=== PATIENT | male | born 1955 | race Caucasian/White ===

== ENCOUNTER 2018-10-06 06:42 | Day surgery (SDC) | payer OTHER ==
[~2018-10-06] VITALS: Ht 175.3 cm; Wt 111.4 kg
[2018-10-06] MEDS ORDERED: PRINIVIL40 MG PO (07:03)
[2018-10-06] MEDS ORDERED: HCTZ 25MG TAB25 MG PO (07:03)
[2018-10-06] MEDS ORDERED: ZETIA 10MG TAB10 MG PO (07:03)
[2018-10-06] MEDS ORDERED: GLUCOPHAGE1000 MG PO (07:04)
[2018-10-06] MEDS ORDERED: DIMETAPP COLD PO (07:06)
[2018-10-06] MEDS ORDERED: PROAIR HFA0.09 MG/AC IH (07:07)
[2018-10-06] MEDS ORDERED: ASPIRIN 81M81 MG/TA2 PO (07:07)
[2018-10-06] MEDS ORDERED: FLONASE NASAL S16 GM NS (07:08)
[2018-10-06] MEDS ORDERED: SUDAFED30 MG PO (07:09)
[2018-10-06] MEDS ORDERED: MASON NATURAL2000 IU PO (07:10)
[2018-10-06] MEDS ORDERED: ATROVENT NASAL15 ML NS (07:11)
[2018-10-06 07:45] VITALS: BP 149/69; PULSE 100; TEMP 98.5
[2018-10-06 09:55] VITALS: BP 110/59; PULSE 96; TEMP 97.7
--- NOTE | 2018-10-06 09:55 | NUR ---
Patient arrives back from Endo alert, denies pain. Patient monitor applied, vitals stable. Oxygen level in the mid to upper 80%s on room air. 2L O2 per nasal cannula applied.
[2018-10-06 10:10] VITALS: BP 127/55; PULSE 98
--- NOTE | 2018-10-06 10:10 | NUR ---
Patient tolerates pudding and coffee without any difficulties. Patient's friend at bedside. Vitals stable.
--- NOTE | 2018-10-06 10:10 | NUR ---
Radiology into see patient at this time.
[2018-10-06 10:25] VITALS: BP 129/62; PULSE 97
--- NOTE | 2018-10-06 10:25 | NUR ---
Oxygen therapy discontinued at this time to see how patient can do on room air.
[2018-10-06 10:39] LABS: PLEURAL FLUID RBC 2000 /mm3 (0-0); PLEURAL FLUID WBC 1382 /mm3
[2018-10-06 10:40] VITALS: BP 138/61; PULSE 95
--- NOTE | 2018-10-06 10:45 | NUR ---
Patient has maintained his oxygen saturation levels between 88-90% while on room air. Patient denies shortness of breath or pain. Will notify Dr Maloney.
[2018-10-06 10:46] LABS: PLEURAL FLUID APPEARANCE CLEAR; PLEURAL FLUID COLOR YELLOW
--- NOTE | 2018-10-06 10:50 | NUR ---
Dr Maloney contacted at this time to go over Chest X-ray results and patient's oxygen saturation. Dr Maloney reports that patient's chest x-ray looks ok to send him home, and that he wants patient to go straight to his office to get setup on home O2.
[2018-10-06 10:55] LABS: GLUCOSE,PLEURAL FLUID 139 mg/dL; TOTAL PROTEIN,PLEURAL FLUID 3.6 gm/dL
--- NOTE | 2018-10-06 11:10 | NUR ---
Dismissal instructions gone over with patient. He verbalizes understanding and all questions answered. Patient thanks staff for services.
[2018-10-06 11:55] VITALS: BP 115/54; PULSE 93
== END 2018-10-06 11:15 | disposition home or self-care (01) ==
LOC: SDCO 06:42
PROVIDERS: Internal Medicine Pulmonary Disease
DX: C34.01 Malignant neoplasm of right main bronchus (principal); J90 Pleural effusion, not elsewhere classified; J98.11 Atelectasis; Z87.891 Personal history of nicotine dependence; Z80.3 Family history of malignant neoplasm of breast; Z80.0 Family history of malignant neoplasm of digestive organs; R63.4 Abnormal weight loss; R05 Cough; E11.9 Type 2 diabetes mellitus without complications; Z79.84 Long term (current) use of oral hypoglycemic drugs; Z79.899 Other long term (current) drug therapy; Z79.82 Long term (current) use of aspirin; Z83.3 Family history of diabetes mellitus; Z80.9 Family history of malignant neoplasm, unspecified
CPT/HCPCS: J2704; J7120

== ENCOUNTER 2018-11-28 09:28 | Inpatient (IN) | payer OTHER ==
[~2018-11-28] VITALS: Ht 182.9 cm; Wt 118.6 kg
[2018-11-28] VITALS (505 sets, daily range): BP systolic 84–152; BP diastolic 51–85; PULSE 115–131; TEMP 98.6–100.6; O2SAT 91–97
[~2018-11-28 09:28] MED LIST: ASPIRIN 81M81 MG/TA2 PO; ATROVENT NASAL15 ML NS; DIMETAPP COLD PO; FLONASE NASAL S16 GM NS; GLUCOPHAGE1000 MG PO; HCTZ 25MG TAB25 MG PO; MASON NATURAL2000 IU PO; PRINIVIL40 MG PO; PROAIR HFA0.09 MG/AC IH; SUDAFED30 MG PO; ZETIA 10MG TAB10 MG PO
--- NOTE | 2018-11-28 11:00 | NUR ---
Pt arrived via EMS with propofol infusing at 5mcg/kg/min with pt's eyes open with restless and aggitated arm movements. MD Courtney and MD Kelsey notified of arrival - sedation orders and parameters recieved. Pt transfered via slideboard to ICU bed without difficulty, pt connected to hospital ventilator. Green catheter inserted with assistance of NIDIA Abernathy. Existing incompatible NG tube removed and replaced with OG tube 70cm to lip placement confirmed by radiograph placed on low intermittant suction - reddish green drainage noted. Orders for restraints carried out. Pt able to follow commands, shake head "yes and no" for questions. Pt denies pain, moves all extremities with purposeful movement. 1334: Spouse Cassy called in for update, stated she and daughter will be in to see pt tomorrow. Pt updated spouse called in to check on him 1400: MD Kelsey and MD Courtney at bedside together 1404: MD Courtney notified of critical lab: Chloride 88 - no new orders Sedation increased per protocol after Levophed initiated. Pt denies wish to have television on.
[2018-11-28 11:57] LABS: ARTERIAL BLD GAS O2 SATURATION 97.5 % (92-100); ARTERIAL BLD GAS TCO2 CT 27.7; ARTERIAL BLOOD GAS BASE EXCESS 1.2 (-2-2); ARTERIAL BLOOD GAS HCO3 26.3 meq/L (22-26); ARTERIAL BLOOD GAS PCO2 43.8 mmHg (35-45); ARTERIAL BLOOD GAS PO2 109.3 mmHg (80-100)
[2018-11-28 13:50] LABS: HEMOGLOBIN 10.2 g/dl (13.5-18.0); MEAN CELL VOLUME 86 fl (80.0-100.0); MEAN CORPUSCULAR HEMOGLOBIN 29 pg (27.0-31.0); MEAN CORPUSCULAR HGB CONC 33 g/dl (33.0-37.0); MEAN PLATELET VOLUME 8.5 fl (7.4-10.4); PLATELET COUNT 200 K/mm3 (130-400); RED BLOOD COUNT 3.55 M/mm3 (4.20-5.60); REDCELL DISTRIBUTION WIDTH-CV 16.4 % (11.5-14.5)
[2018-11-28 13:51] LABS: HEMATOCRIT 30.5 % (42.0-52.0)
[2018-11-28 14:02] LABS: ALBUMIN 2.5 gm/dL (3.5-5.0); BILIRUBIN UNCONJUGATED 0.1 mg/dL (0.0-1.1); BILIRUBIN,DIRECT 0.3 mg/dL (0.0-0.4); BILIRUBIN,TOTAL 0.4 mg/dL (0.0-1.0); CREATININE, serum 0.54 (0.66-1.25); POTASSIUM 3.4 mmol/L (3.4-5.0); TOTAL PROTEIN 5.4 gm/dL (6.4-8.2)
[2018-11-28 14:03] LABS: BAND 27 % (0-10); EOSINOPHIL 2 % (0-4); LYMPHOCYTE 2 % (20.0-51.0); NEUTROPHILS 69 % (42.0-75.2); PLATELET ESTIMATE NORMAL (NORMAL)
[2018-11-28 17:05] LABS: MUCOUS Present /lpf; PH 5 (5-8); SQUAMOUS EPITHELIAL None Seen /hpf; URINE APPEARANCE Clear; URINE BACTERIA None Seen /hpf; URINE BILIRUBIN Negative (NEGATIVE); URINE BLOOD 1+ (NEGATIVE); URINE COLOR Yellow; URINE GLUCOSE Negative (NEGATIVE); URINE KETONE Trace (NEGATIVE); URINE LEUKOCYTE ESTERASE Negative (NEGATIVE); URINE NITRATE Negative (NEGATIVE); URINE PROTEIN(semi-quant) Negative (NEGATIVE); URINE UROBILINOGEN Negative (NEGATIVE); URINE WBC 0-2 /hpf
[2018-11-28 17:13] LABS: COLLECTION METHOD CLEAN CATCH
[2018-11-28] MEDS ORDERED: FOLIC ACID 11 MG/TA1 PO (17:31)
[2018-11-28] MEDS ORDERED: B-121000 MCG PO (17:32)
[2018-11-28] MEDS ORDERED: DECADRON 4MG TAB4 MG PO (17:32)
[2018-11-28] MEDS ORDERED: ZITHROMAX 250M250 MG (17:33)
--- NOTE | 2018-11-28 19:20 | NUR ---
RECEIVED REP[ORT FROM NIDIA IVAN. MEDICATIONS, TUBES, AND LINES VARIFIED. WILL CONTINUE TO MONITOR PATIENT.
--- NOTE | 2018-11-28 19:22 | NUR ---
Reported off to NIDIA Constantino at bedside. All lines, OG, gtts, and tubes assessed together.
[2018-11-28 22:44] LABS: HEMATOCRIT 29.1 % (42.0-52.0); HEMOGLOBIN 9.9 g/dl (13.5-18.0)
--- NOTE | 2018-11-28 23:24 | NUR ---
PATIENTS URINE HAS BECOME MORE CLOUDY THROUGHOUT SHIFT.
--- NOTE | 2018-11-28 23:51 | NUR ---
CALLED HECTOR RAMÍREZ TO INFORM HER OF PATIENTS HEART RATE, [id number]. INSTRUCTED ME TO CALL AND EICU. CALLED EICU REGARDING THIS INFORMATION AND NIDIA BIRMINGHAM SAID SHE WOULD NOTIFY THE PHYSICIAN.
[2018-11-29] VITALS (570 sets, daily range): BP systolic 76–178; BP diastolic 43–91; PULSE 90–121; TEMP 98.8–102; O2SAT 85–97
--- NOTE | 2018-11-29 00:38 | NUR ---
patient is sedated at this time. will follow commands when asked. resting comfortably.
--- NOTE | 2018-11-29 02:40 | NUR ---
PATIENT IS RESTING PEACEFULLY. WILL CONTINUE TO MONITOR PATIENT AT THIS TIME.
--- NOTE | 2018-11-29 03:32 | NUR ---
Gave patient a bed bath. Patient had a few questions so we communicated via whiteboard. I answered all his questions and He asked me if he could rest now. Patient denied pain at this time. Will continue to monitor patient.
--- NOTE | 2018-11-29 04:11 | NUR ---
NOTIFIED DARRELL, PHOTOGRAMMETRIC TECHNICIAN OF THE ELEVATED TEMPERATURE AND INCREASED CLOUDINESS OF PATIENTS URINE.
--- NOTE | 2018-11-29 05:06 | NUR ---
PATIENT IS ALREADY ALERT, COMMUNICATING THROUGH THE WHITEBOARD, AND RESPONDING TO COMMANDS AT THIS TIME. NO NEED TO FURTHER REDUCE THE PROPOFOL AND FENTANYL.
[2018-11-29 05:51] LABS: ARTERIAL BLD GAS O2 SATURATION 98.2 % (92-100); ARTERIAL BLD GAS TCO2 CT 24.9; ARTERIAL BLOOD GAS BASE EXCESS -0.2 (-2-2); ARTERIAL BLOOD GAS HCO3 23.8 meq/L (22-26); ARTERIAL BLOOD GAS PCO2 36.6 mmHg (35-45); ARTERIAL BLOOD GAS pH 7.43 (7.35-7.45)
[2018-11-29 05:53] LABS: MEAN CELL VOLUME 87 fl (80.0-100.0); MEAN CORPUSCULAR HGB CONC 32 g/dl (33.0-37.0); MEAN PLATELET VOLUME 8.7 fl (7.4-10.4); PLATELET COUNT 186 K/mm3 (130-400); RED BLOOD COUNT 3.33 M/mm3 (4.20-5.60); REDCELL DISTRIBUTION WIDTH-CV 16.8 % (11.5-14.5)
[2018-11-29 05:57] LABS: HEMATOCRIT 28.9 % (42.0-52.0); HEMOGLOBIN 9.3 g/dl (13.5-18.0); MEAN CORPUSCULAR HEMOGLOBIN 28 pg (27.0-31.0)
--- NOTE | 2018-11-29 06:01 | NUR ---
CALLED AND REPORTED CRITICAL LAB VALUE TO [facility].
[2018-11-29 06:03] LABS: ALBUMIN 2.4 gm/dL (3.5-5.0); BILIRUBIN,TOTAL 0.7 mg/dL (0.0-1.0); CALCIUM 7.5 mg/dL (8.4-10.2); CREATININE, serum 0.55 (0.66-1.25); MAGNESIUM 1.8 mg/dL (1.6-2.3); PHOSPHOROUS 2.7 mg/dL (2.5-4.5)
--- NOTE | 2018-11-29 07:32 | NUR ---
GAVE REPORT TO NIDIA IVAN.
--- NOTE | 2018-11-29 08:00 | NUR ---
ATTEMPTED TO WEAN FIO2 BY 10% TAKING IT DOWN TO 60% FI02 PER AM ABG'S PAO2 RESULTS. SPO2 NOT TOLERATING CHANGE WILL INCREASE BY 5% AND IF NOT TOLERATED WILL RETURN TO 70% FI02. DR. TOBY STOKES.
[2018-11-29 08:06] LABS: ANISOCYTOSIS 1+; BAND 14 % (0-10); EOSINOPHIL 8 % (0-4); LYMPHOCYTE 3 % (20.0-51.0); NEUTROPHILS 75 % (42.0-75.2); PLATELET ESTIMATE NORMAL (NORMAL)
[2018-11-29 09:58] LABS: COLLECTION METHOD CATHETER
[2018-11-29 10:17] LABS: AMORPHOUS CRYSTAL Present /uL; MUCOUS Present /lpf; PH 5 (5-8); SQUAMOUS EPITHELIAL 0-2 /hpf; URINE APPEARANCE Turbid; URINE BACTERIA None Seen /hpf; URINE BILIRUBIN Negative (NEGATIVE); URINE BLOOD 2+ (NEGATIVE); URINE COLOR Red; URINE GLUCOSE Negative (NEGATIVE); URINE KETONE 1+ (NEGATIVE); URINE LEUKOCYTE ESTERASE Negative (NEGATIVE); URINE NITRATE Negative (NEGATIVE); URINE PROTEIN(semi-quant) 1+ (NEGATIVE); URINE RBC >50 /hpf; URINE UROBILINOGEN Negative (NEGATIVE)
--- NOTE | 2018-11-29 11:33 | NUR ---
MD Courtney notified pts spouse Cassy and her 2 daughters here visiting and are requesting meeting with doctor.
--- NOTE | 2018-11-29 12:13 | NUR ---
MD Courtney at bedside talking with family about plan of care
--- NOTE | 2018-11-29 13:10 | NUR ---
Patient lives at home with his (Viviana) in [place], [place] and plans to return home upon discharge as his recovery will allow. Patient is undergoing chemotherapy and radiation for lung cancer and he is retired from the [employer] . Patient's primary care physician is Dr. Taylor Sepulveda, his pharmacy and medical care are monitored by [facility], and he does not have advance directives on file at this time. No further needs at this time and social economist will follow as needed. Patient's (Milena) contact information is [phone].
[2018-11-29 13:41] LABS: HEMATOCRIT 27.8 % (42.0-52.0); HEMOGLOBIN 9.1 g/dl (13.5-18.0)
--- NOTE | 2018-11-29 16:22 | NUR ---
Pt transported for CT scan accompanied by Student RN and Patience,RT using transport ventilator. Transport to and fro completed without difficulty or line/tube issues or compromise, vitals remained stable, see IV drip titrate notes, MD Courtney notified of completed study. 1622 departed ICU - 1650 arrival
--- NOTE | 2018-11-29 16:22 | NUR ---
PT TRANSPORTED TO CT SCAN AT THIS TIME. PT PLACED ON TRANSPORT VENTILATOR. NO INCIDENTS. PT TOLERATED TRANSPORT WELL. PT PLACED ON PREVIOUSLY DOCUMENTED SETTINGS FOR TRANSPORT. POST TRANSPORT PT PLACED BACK ON DRAGER VENT WITH PREVIOUS SETTINGS. NO CHANGES AT THIS TIME.
--- NOTE | 2018-11-29 17:29 | NUR ---
Pt RASS of -1 at current sedation infusion rates and able to follow all commands including equal strong bilateral hand grasps and bilateral lower extremity movements
--- NOTE | 2018-11-29 19:10 | NUR ---
Initiated at previous dosage patient was running at, as the starting dosage resulted in increased BP. Will continue to monitor.
--- NOTE | 2018-11-29 20:10 | NUR ---
Patient assessment completed and charted at this time, please see documentation for details. Patient on ventilator, following commands, easily arroused. Will continue to monitor patient at this time.
[2018-11-30] VITALS (368 sets, daily range): BP systolic 76–134; BP diastolic 56–76; PULSE 98–113; TEMP 98.7–100.7; O2SAT 88–95
--- NOTE | 2018-11-30 05:00 | NUR ---
Patient not a candidate for smart care, easily arousable, following commands, no sedation vacation at this time.
[2018-11-30 05:02] LABS: MEAN CELL VOLUME 87 fl (80.0-100.0); MEAN CORPUSCULAR HGB CONC 33 g/dl (33.0-37.0); MEAN PLATELET VOLUME 8.7 fl (7.4-10.4); PLATELET COUNT 136 K/mm3 (130-400); RED BLOOD COUNT 3.27 M/mm3 (4.20-5.60); REDCELL DISTRIBUTION WIDTH-CV 17.3 % (11.5-14.5)
[2018-11-30 05:04] LABS: HEMATOCRIT 28.4 % (42.0-52.0); HEMOGLOBIN 9.3 g/dl (13.5-18.0); MEAN CORPUSCULAR HEMOGLOBIN 28 pg (27.0-31.0)
[2018-11-30 05:17] LABS: ALBUMIN 2.5 gm/dL (3.5-5.0); BILIRUBIN,TOTAL 0.6 mg/dL (0.0-1.0); CREATININE, serum 0.92 (0.66-1.25); PHOSPHOROUS 3.6 mg/dL (2.5-4.5); POTASSIUM 3.8 mmol/L (3.4-5.0); TOTAL PROTEIN 5.4 gm/dL (6.4-8.2)
[2018-11-30 05:30] LABS: ANISOCYTOSIS 1+; BAND 6 % (0-10); EOSINOPHIL 16 % (0-4); HYPOCHROMIA 1+; NEUTROPHILS 76 % (42.0-75.2); PLATELET ESTIMATE DECREASED (NORMAL)
[2018-11-30 05:31] LABS: TEAR DROP CELLS 1+
[2018-11-30 05:58] LABS: ARTERIAL BLD GAS O2 SATURATION 93.2 % (92-100); ARTERIAL BLD GAS TCO2 CT 23.8; ARTERIAL BLOOD GAS BASE EXCESS -1.5 (-2-2); ARTERIAL BLOOD GAS HCO3 22.7 meq/L (22-26); ARTERIAL BLOOD GAS PCO2 36.2 mmHg (35-45); ARTERIAL BLOOD GAS pH 7.42 (7.35-7.45)
--- NOTE | 2018-11-30 06:53 | NUR ---
NO CPAP TRIAL
--- NOTE | 2018-11-30 07:00 | NUR ---
Report recieved from NIDIA Vergara.
--- NOTE | 2018-11-30 07:30 | NUR ---
Assessment complete, patient remains intubated, awakens easily to name, follows commands, AM care complete, bilateral wrist restraints in place, call light within reach.
--- NOTE | 2018-11-30 11:47 | NUR ---
irrigation service technician in room for ECHO.
--- NOTE | 2018-11-30 12:23 | NUR ---
Dr. Kelsey hdez, Kirsten,RN (palliative care) all here to speak with patient and family.
--- NOTE | 2018-11-30 13:30 | NUR ---
PT here to work with patient.
--- NOTE | 2018-11-30 16:42 | NUR ---
Ady rod called to Porter Peters.
--- NOTE | 2018-11-30 17:00 | NUR ---
No changes for sedation vacation, patient awakens easily and follows commands.
--- NOTE | 2018-11-30 19:15 | NUR ---
Bedside report received from Bertha Casillas RN. Pt resting in bed intubated and sedation. Will open eyes spontaneously to sounds.
--- NOTE | 2018-11-30 19:30 | NUR ---
Bedside report given to NIDIA Hamm.
--- NOTE | 2018-11-30 23:40 | NUR ---
Increased Pivot 1.5 tube feeds to 40ml/hr from 25ml/hr per order to increase Q8hr 15ml/hr.
[2018-12-01] VITALS (120 sets, daily range): BP systolic 102–142; BP diastolic 30–98; PULSE 98–115; TEMP 97–98.9; O2SAT 79–100
[2018-12-01 04:51] LABS: ARTERIAL BLD GAS O2 SATURATION 89.9 % (92-100); ARTERIAL BLD GAS TCO2 CT 22.1; ARTERIAL BLOOD GAS BASE EXCESS -4.1 (-2-2); ARTERIAL BLOOD GAS HCO3 20.9 meq/L (22-26); ARTERIAL BLOOD GAS PCO2 37.9 mmHg (35-45); ARTERIAL BLOOD GAS PO2 62.1 mmHg (80-100); ARTERIAL BLOOD GAS pH 7.36 (7.35-7.45)
--- NOTE | 2018-12-01 04:58 | NUR ---
CONTACTED E-CARE AT THIS TIME REGARDING ABG. WILL NOT DO SMARTCARE AT THIS TIME, PT'S O2 NEEDS INCREASING AT THIS TIME.
--- NOTE | 2018-12-01 05:00 | NUR ---
Sedation vacation included just turning off propofol due to pt being on a low dose and drowsy while propofol was being administered. Pt was able to write notes to nurse and ask questions. Agreement was that pt would report to nurse when sedation is wanted to be back on to help pt get "sleepy".
--- NOTE | 2018-12-01 05:14 | NUR ---
PT'S FIO2 INCREASED AT THIS TIME TO 70% PER E-CARE.
[2018-12-01 05:27] LABS: MEAN CELL VOLUME 88 fl (80.0-100.0); MEAN CORPUSCULAR HGB CONC 32 g/dl (33.0-37.0); MEAN PLATELET VOLUME 8.2 fl (7.4-10.4); PLATELET COUNT 90 K/mm3 (130-400); REDCELL DISTRIBUTION WIDTH-CV 17.7 % (11.5-14.5)
[2018-12-01 05:28] LABS: HEMATOCRIT 28.3 % (42.0-52.0); HEMOGLOBIN 9.1 g/dl (13.5-18.0); MEAN CORPUSCULAR HEMOGLOBIN 28 pg (27.0-31.0)
--- NOTE | 2018-12-01 05:30 | NUR ---
During conversation, via writting on pts end, agreement was obtained that sedation would be decreased or turned off when family/ visitors came into pt room.
[2018-12-01 05:42] LABS: ALBUMIN 2.4 gm/dL (3.5-5.0); BILIRUBIN,TOTAL 0.5 mg/dL (0.0-1.0); CALCIUM 7.8 mg/dL (8.4-10.2); CREATININE, serum 1.5 (0.66-1.25); MAGNESIUM 2.1 mg/dL (1.6-2.3); PHOSPHOROUS 4.2 mg/dL (2.5-4.5); POTASSIUM 3.8 mmol/L (3.4-5.0); TOTAL PROTEIN 5.3 gm/dL (6.4-8.2)
[2018-12-01 06:16] LABS: BAND 34 % (0-10); EOSINOPHIL 4 % (0-4); LYMPHOCYTE 4 % (20.0-51.0); NEUTROPHILS 58 % (42.0-75.2)
[2018-12-01 06:17] LABS: ANISOCYTOSIS 1+; HYPOCHROMIA 1+; PLATELET ESTIMATE DECREASED (NORMAL); TEAR DROP CELLS 1+
--- NOTE | 2018-12-01 07:25 | NUR ---
Report provided to Tabatha JACOB. Pt resting in bed at this time with glasses on as well as television. Makes wants and needs known to staff at this time via writting due to intubation.
--- NOTE | 2018-12-01 07:30 | NUR ---
Increased Pivot 1.5 tube feedings to goal of 51ml/hr from 40ml/hr per order.
--- NOTE | 2018-12-01 07:30 | NUR ---
While at pt bedside pt requested to have sedation turned back on in order to "get sleepy".
--- NOTE | 2018-12-01 10:55 | NUR ---
PEEP INCREASED TO [address] LUIS'S VERBAL ORDERS. PROVIDER ORDERS TO INCREASE SEDATION WHEN PEEP IS INCREASED. PROPOFOL INCREASED TO 45MCG/KG/MIN.
--- NOTE | 2018-12-01 11:50 | NUR ---
Pt alone in room during rounding today. Will wait for family to arrive and then must discuss what goal of care we are working toward.
--- NOTE | 2018-12-01 12:00 | NUR ---
PT HAVING INCREASED AGITATION D/T INCREASED PRESSURE ON VENT. SEDATION INCREASED FOR PT COMFORT
--- NOTE | 2018-12-01 12:00 | NUR ---
PT ATTEMPTING TO PULL HIMSELF FORWARD IN THE BED AND MOTIONS THAT HE IS SHORT OF BREATH. UNABLE TO TURN PATIENT AT THIS TIME. PT'S HOB INCREASED AND PILLOW PLACED BEHIND HIS BACK TO OPTIMIZE BREATHING.
--- NOTE | 2018-12-01 12:52 | NUR ---
EMANUEL campbell attended clinical rounds. is continuing with current treatment plan. Patient's daughter and family should be here this afternoon to talk with medical team and Kirsten Nguyen (Palliative Care Nurse) about next steps. Kirsten will contact EMANUEL Gonsales when they arrive.
--- NOTE | 2018-12-01 12:53 | NUR ---
PT'S DAUGHTER'S HAVE ARRIVED FROM OUT OF STATE. PROPOFOL GTT TURNED DOWN PER PATIENT'S REQUEST SO HE CAN COMMUNICATE WITH FAMILY. PROPOFOL GTT CURRENTL AT 25MCG/KG/MIN.
--- NOTE | 2018-12-01 13:37 | NUR ---
Sedation turned back up to 50mcg/kg/min
--- NOTE | 2018-12-01 13:49 | NUR ---
Met with daughter who drove in from [place] today after her visit with her father. She reports that they have talked with their father and have told him that he does not have to keep fighting if he doesn't want to and that they understand. and step daughter have already come and gone. They will not return until tomorrow. Pt had requested that his sedation be increased so that he could rest between visits and this had already occured when I arrived on the unit. I did talk with daughter about importance of reaching a clear goal of care soon as it will be time to talk about placing a trach and peg or else removing the ventilator and she states she already knew about that discussion. She reports the family will be back together her tomorrow and can reach a final decision.
--- NOTE | 2018-12-01 16:00 | NUR ---
PT HAVING AGONAL BREATHING EVEN ON VENTILATOR. PT'S SAT 92-95% ON 85% FIO2, PEEP OF 10. PT'S COLOR GRAYISH. RIGHT UPPER LOBE DIMINISHED, RIGHT MID DIMINISHED, AND RIGHT LOWER LOBE ABSENT. LEFT UPPER LOBE COARSE, LEFT LOWER LOBE DIMINISHED.
--- NOTE | 2018-12-01 19:23 | NUR ---
RECEIVED REPORT FROM NIDIA RECINOS. MEDICATIONS, TUBES, AND LINES VARIFIED. WILL BE IN TO COMPLETE ASSESSMENT AFTER REVIEWING LABS AND MEDICATIONS.
--- NOTE | 2018-12-01 21:52 | NUR ---
PT DESATTING TO 80% ON 85% FI02 INCREASED TO 100% FI02 AND SAT CAME UP TO 90% TO 93% WILL CONTINUE TO MONITOR AND ASSESS PT. DID DISCUSS THE SATURATION PROBLEM WITH RN AND
--- NOTE | 2018-12-01 23:07 | NUR ---
PATIENT IS RESTING IN BED AT THIS TIME. VITALS ARE WITHIN NORMAL LIMITS. WILL CONTINUE TO MONITOR PATIENT.
[2018-12-02] VITALS (11 sets, daily range): BP systolic 79–113; BP diastolic 45–64; PULSE 96–125; TEMP 96.5–98.4; O2SAT 93–95
--- NOTE | 2018-12-02 04:08 | NUR ---
PATIENT HAS PRODUCED MORE AND MORE SECREATIONS THROUGHOUT SHIFT. WILL CONTINUE TO MONITOR.
--- NOTE | 2018-12-02 05:13 | NUR ---
PATIENT IS STRUGGELING BREATHING ON THE VENTILATOR WITH AN FIO2 OF 100%. PATIENT IS NOT A CANITATE FOR SMART CARE AT THIS TIME SO WE ARE GOING TO TRY THE SEDATION VACATION FOR ANOTHER TIME. WE ARE TRYING TO KEEP THE PATIENT COMFORTABLE POSSIBLE TO TOLERATE THE VENTILATOR.
[2018-12-02 05:29] LABS: ARTERIAL BLD GAS O2 SATURATION 86.2 % (92-100); ARTERIAL BLD GAS TCO2 CT 22.8; ARTERIAL BLOOD GAS BASE EXCESS -9.7 (-2-2); ARTERIAL BLOOD GAS HCO3 20.8 meq/L (22-26); ARTERIAL BLOOD GAS PO2 57.8 mmHg (80-100)
[2018-12-02 05:32] LABS: ARTERIAL BLOOD GAS PCO2 65.2 mmHg (35-45); ARTERIAL BLOOD GAS pH 7.12 (7.35-7.45)
[2018-12-02 06:08] LABS: MEAN CELL VOLUME 90 fl (80.0-100.0); MEAN CORPUSCULAR HGB CONC 31 g/dl (33.0-37.0); PLATELET COUNT 69 K/mm3 (130-400); RED BLOOD COUNT 3.45 M/mm3 (4.20-5.60); REDCELL DISTRIBUTION WIDTH-CV 18.3 % (11.5-14.5)
[2018-12-02 06:11] LABS: HEMATOCRIT 31.2 % (42.0-52.0); HEMOGLOBIN 9.8 g/dl (13.5-18.0); MEAN CORPUSCULAR HEMOGLOBIN 28 pg (27.0-31.0)
[2018-12-02 06:19] LABS: CREATININE, serum 2.05 (0.66-1.25); POTASSIUM 4.7 mmol/L (3.4-5.0)
--- NOTE | 2018-12-02 06:33 | NUR ---
PT FI02 AND PEEP TO HIGH FOR SMART CARE
--- NOTE | 2018-12-02 07:05 | NUR ---
Bedside report recieved from NIDIA Constantino.
--- NOTE | 2018-12-02 07:44 | NUR ---
gave report to ben thomas.
[2018-12-02 07:45] LABS: BAND 7 % (0-10); EOSINOPHIL 2 % (0-4); LYMPHOCYTE 4 % (20.0-51.0); MYELOCYTE 3 % (0-0); NEUTROPHILS 77 % (42.0-75.2); PLATELET ESTIMATE DECREASED (NORMAL)
[2018-12-02 07:47] LABS: ANISOCYTOSIS 1+
[2018-12-02 07:48] LABS: TARGET CELLS 1+
[2018-12-02 08:13] LABS: TEAR DROP CELLS 2+
--- NOTE | 2018-12-02 08:40 | NUR ---
Family at bedside, discussed with them patient not doing well, levophed was started for hypotension, FIO2 at 100%, patient guppy breathing on the ventilator, and patient not responding. Family wishing to go comfort care as soon as additional family arrives.
--- NOTE | 2018-12-02 09:30 | NUR ---
Family has all arrived and have spoken. Per , his DPOA-HC, they want the ET tube removed now--even before the rest of the family arrives because "he has suffered enough". Dr Cole and Dr Kruse notified, orders entered by treatment team. Family is at bedside and asking when this will happen.
--- NOTE | 2018-12-02 09:47 | NUR ---
KirstenRN (palliative care RN) here, family here would like patient extubated to comfort care. Dr. Kelsey gutierrez.
--- NOTE | 2018-12-02 09:56 | NUR ---
Dr. Cole at bedside, all gtts turned off, tube feeding turned off, family at bedside. NIDIA Curtis at bedside, Janice,social work nurse here.
--- NOTE | 2018-12-02 10:04 | NUR ---
Patient extubated at this time for comfort care, all family at bedside.
--- NOTE | 2018-12-02 10:06 | NUR ---
PT TERMINALLY EXTUBATED AT THIS TIME PER MD.
--- NOTE | 2018-12-02 10:11 | NUR ---
Chaplain Stone at bedside.
--- NOTE | 2018-12-02 10:21 | NUR ---
Patient , no heartbeat, no respirations, verified by this RN and NIDIA Curtis. Family at bedside. Dr. Cole notified.
--- NOTE | 2018-12-02 10:23 | NUR ---
Initial visit; Patient's family requested Assistant Scientist visit and prayer. Assistant Scientist offered prayer and Psa 23 for Kvng and family.
--- NOTE | 2018-12-02 10:32 | NUR ---
Patient and family decided to switch to comfort care measures this morning. Patient was extubated and at 10:21am. EMANUEL, Kirsten (pallative care nurse), and Head Setter Bertha was present and provided support to family. Patient's reported their preferred home is [facility] ([phone]). EMANUEL contacted [facility] and informed them of patient's . EMANUEL will contact them again after [facility] [place] is contacted.
--- NOTE | 2018-12-02 10:38 | NUR ---
Pt's family members are all here and after speaking to them and DPOA-HC Viviana, Dr Cole was contacted of family's wish to discontinue intubation and allow a comfortable and natural . Morphine and ativan was given a family members were kept advised of what was being done and why. Some family members chose to step out at times and others remained at bedside with support. Bertha Melendze provided prayer. Support was provided. Comfort quilt was given. Family will use [facility] in [place]. Pt's verified with Bertha Zhu RN.
--- NOTE | 2018-12-02 10:52 | NUR ---
[facility] # [id number]. Patient not a candidate for donation.
--- NOTE | 2018-12-02 11:25 | NUR ---
Post hola care performed.
--- NOTE | 2018-12-02 11:46 | NUR ---
Body released to home.
== END 2018-12-02 11:50 | disposition expired | DRG 871 ==
LOC: IMCU 09:28 → ICU 10:40
PROVIDERS: Internal Medicine Critical Care Medicine; Physician Assistant; ADMIT Hospitalist
PROC: 5A1945Z Respiratory Ventilation, 24-96 Consecutive Hours (ICD-10-PCS; principal; 2018-11-28)
DX: A41.9 Sepsis, unspecified organism (principal); J18.9 Pneumonia, unspecified organism; J96.01 Acute respiratory failure with hypoxia; D61.810 Antineoplastic chemotherapy induced pancytopenia; Z66 Do not resuscitate; Z51.5 Encounter for palliative care; R65.21 Severe sepsis with septic shock; C34.02 Malignant neoplasm of left main bronchus; C78.7 Secondary malignant neoplasm of liver and intrahepatic bile duct; C79.31 Secondary malignant neoplasm of brain; J44.0 Chronic obstructive pulmonary disease with (acute) lower respiratory infection; R04.2 Hemoptysis; E87.1 Hypo-osmolality and hyponatremia; J90 Pleural effusion, not elsewhere classified; N17.9 Acute kidney failure, unspecified; N39.0 Urinary tract infection, site not specified; E11.9 Type 2 diabetes mellitus without complications; I10 Essential (primary) hypertension; E78.5 Hyperlipidemia, unspecified; E87.6 Hypokalemia; E87.8 Other disorders of electrolyte and fluid balance, not elsewhere classified; D64.9 Anemia, unspecified
CPT/HCPCS: 99223-AI; 99232-AI; 99233-AI; 99238; J1447; J1815; J1940; J2060; J2270; J2543; J2704; J3010; J3370; J3480; J7030; J7040; J7060